=== PATIENT | female | born 1970 | race African-American/Black ===

== ENCOUNTER 2021-04-05 06:03 | Emergency (ER) | payer OTHER, SELFPAY ==
[2021-04-05] MEDS ORDERED: methylPREDNISolone Sod Succ/PF 125 MG/2 ML VIAL ONE (06:30)
[2021-04-05] MEDS ORDERED: diphenhydrAMINE 50 MG/ML VIAL ONE (06:30)
[2021-04-05] MEDS ORDERED: Ondansetron PF 4 MG/2 ML Vial ONE (06:30)
[2021-04-05 07:03] LABS: #Lymphocytes 2.7 thou/uL (1.20-3.40); #Monocytes 0.6 thou/uL (0.11-0.59); %Basophils 0.4 % (0.0-1.0); %Eosinophils 0.3 % (0.0-10.0); %Monocytes 7.6 % (0.0-10.0); %Neutrophils 59.7 % (42.0-75.0); Hemoglobin 12.9 g/dL (12.0-16.0); Mean Corpuscular HGB CONC 33.3 g/dL (32.0-36.0); Mean Corpuscular Hemoglobin 27.9 pg (27.0-31.0); Mean Corpuscular Volume 83.7 fL (78.0-98.0); Platelet Count 327 thou/uL (130-400); RBC Distribution Width 12.7 % (11.5-14.5); Red Blood Cell (RBC) Count 4.64 mill/uL (4.20-5.40); White Blood Cell (WBC) Count 8.5 thou/uL (4.8-10.8)
[2021-04-05 07:16] LABS: Bilirubin Negative (Negative); Blood, Urine Negative (Negative); Clarity Clear (Clear); Glucose, Urine (Dipstick) Normal (Negative); Ketone, Urine Negative (Negative); Leukocyte Negative Leu/uL (Negative); Nitrite Negative (Negative); Protein, Urine (Dipstick) 10 mg/dL (Neg-Trace); Specific Gravity, Urine 1.009 (1.002-1.036); Urobilinogen Normal mg/dL (Less than 2)
[2021-04-05 07:29] LABS: ALT (SGPT) 26 U/L (8-55); AST (SGOT) 13 U/L (5-34); Albumin 4.1 g/dL (3.5-5.0); Alkaline Phosphatase 118 U/L (40-110); Anion Gap 12 mmol/L (10-20); BUN (Urea Nitrogen) 10 mg/dL (7.0-18.7); Bilirubin, Total 0.3 mg/dL (0.2-1.2); Calc. Creatinine Clearance 0 mL/min (70-130); Calcium 9.8 mg/dL (7.8-10.44); Carbon Dioxide 26 mmol/L (22-29); Chloride 104 mmol/L (98-107); Globulin 4.7 g/dL (2.4-3.5); Glucose 133 mg/dL (70-105); Potassium 3.4 mmol/L (3.5-5.1); Protein, Total 8.8 g/dL (6.0-8.3); Sodium 139 mmol/L (136-145)
[2021-04-05] MEDS ORDERED: Iopamidol-370 76% 500 ML 1 ML ONE (11:09)
== END 2021-04-05 09:35 ==
LOC: ERS 06:03 → EEVIPCON 06:03 → ERS 09:35
DX: R07.81 Pleurodynia (principal); R55 Syncope and collapse; I10 Essential (primary) hypertension; Z79.899 Other long term (current) drug therapy
CPT/HCPCS: 71045; 71275; 80053; 81003; 84484; 85025; 85379; 93005; 96374; 96375; J1200; J2405; J2930; Q9967

== ENCOUNTER 2023-03-01 21:46 | Emergency (ER) | payer SELFPAY ==
[~2023-03-01 21:46] MED LIST: Iopamidol-370 76% 500 ML MDV (1 ML CHARGE) ONE
[2023-03-01 22:35] LABS: %Basophils 0.2 % (0.0-1.0); %Eosinophils 0.4 % (0.0-10.0); %Lymphocytes 27.2 % (21.0-51.0); Hematocrit 33.6 % (36.0-47.0); Hemoglobin 11.1 g/dL (12.0-16.0); Mean Corpuscular Hemoglobin 27.2 pg (27.0-31.0); Mean Corpuscular Volume 82.4 fl (78.0-98.0); Mean Platelet Volume 9.3 fL (7.4-10.4); Platelet Count 299 10x3/uL (130-400); RBC Distribution Width 14.2 % (11.5-14.5); Red Blood Cell (RBC) Count 4.08 mill/uL (4.20-5.40); White Blood Cell (WBC) Count 8.3 10x3/uL (4.8-10.8)
[2023-03-01 22:52] LABS: Acetaminophen Less than 10 mcg/mL (10.0-30.0); Alcohol Less than 10.0 mg/dL (Less than 10); Salicylate Less than 8.0 mg/dL (15.0-30.0)
[2023-03-01 22:54] LABS: ALT (SGPT) 24 U/L (8-55); AST (SGOT) 13 U/L (5-34); Albumin 4.3 g/dL (3.5-5.0); Alkaline Phosphatase 108 U/L (40-110); Anion Gap 15 mmol/L (10-20); BUN (Urea Nitrogen) 14 mg/dL (9.8-20.1); Bilirubin, Total Less than 0.2 mg/dL (0.2-1.2); CK (CPK) 94 U/L (29-168); Calc. Creatinine Clearance 0 mL/min (70-130); Calcium 9.8 mg/dL (7.8-10.44); Carbon Dioxide 22 mmol/L (22-29); Chloride 105 mmol/L (98-107); Estimated GFR 75; Globulin 3.8 g/dL (2.4-3.5); Glucose 108 mg/dL (70-105); Lipase 119 U/L (8-78); Potassium 3.4 mmol/L (3.5-5.1); Protein, Total 8.1 g/dL (6.0-8.3); Sodium 139 mmol/L (136-145)
[2023-03-01 22:56] LABS: Troponin I Less than 0.010 ng/mL (< 0.028)
[2023-03-01 23:24] LABS: Bilirubin Negative (Negative); Blood, Urine Negative (Negative); CAUTI Indications for Culture Pelvic or flank pain; Clarity Clear (Clear); Glucose, Urine (Dipstick) Greater than 1000 mg/dL (Negative); Ketone, Urine Negative (Negative); Leukocyte Negative Leu/uL (Negative); Nitrite 2+ (Negative); Protein, Urine (Dipstick) Negative (Neg-Trace); RBC/HPF 0-3 HPF (0-3); Specific Gravity, Urine 1.011 (1.002-1.036); Urobilinogen Normal mg/dL (Less than 2)
[2023-03-01 23:25] LABS: Bacteria/HPF 1+ HPF (None Seen); Urine Culture Reflex No No
[2023-03-01 23:50] LABS: SARS-CoV-2 NAA Rapid Test Not Detected (NotDetected)
[2023-03-01 23:56] LABS: Amphetamine Not Detected (NotDetected); Barbiturates Screen Not Detected (NotDetected); Benzodiazepine Screen Not Detected (NotDetected); Cocaine Metabolite Screen Detected (NotDetected); Methadone Not Detected (NotDetected); Methamphetamine Not Detected (NotDetected); Opiate Screen Not Detected (NotDetected); Oxycodone Screen Not Detected (NotDetected); Phencyclidine (PCP) Not Detected (NotDetected); THC/Cannabinoid Screen Detected (NotDetected); Tricyclic Screen Detected (NotDetected)
[2023-03-02] MEDS ORDERED: Ketorolac Tromethamine 30 MG/ML VIAL ONE (00:09)
[2023-03-02 02:24] LABS: Troponin I Less than 0.010 ng/mL (< 0.028)
== END 2023-03-02 02:37 | disposition home or self-care (01) ==
LOC: ERS 21:46
DX: R00.2 Palpitations (principal); R07.9 Chest pain, unspecified; N39.0 Urinary tract infection, site not specified; R91.1 Solitary pulmonary nodule; T40.5X1A Poisoning by cocaine, accidental (unintentional), initial encounter; I10 Essential (primary) hypertension; E11.9 Type 2 diabetes mellitus without complications; E78.00 Pure hypercholesterolemia, unspecified; F17.210 Nicotine dependence, cigarettes, uncomplicated; Z79.899 Other long term (current) drug therapy; Z20.822 Contact with and (suspected) exposure to COVID-19
CPT/HCPCS: 36415; 71045; 71275; 80053; 80306; 80307; 81001; 82010; 82550; 83605; 83690; 83880; 84443; 84484; 85025; 85379; 87040; 93005; 96374; J1885; Q9967

== ENCOUNTER 2023-04-06 16:46 | Emergency (ER) | payer SELFPAY ==
[2023-04-06] MEDS ORDERED: Ketorolac Tromethamine 30 MG/ML VIAL ONE (17:53)
[2023-04-06 18:14] LABS: Bilirubin Negative (Negative); Blood, Urine Negative (Negative); CAUTI Indications for Culture Fever or rigors; Clarity Clear (Clear); Glucose, Urine (Dipstick) Greater than 1000 mg/dL (Negative); Ketone, Urine Negative (Negative); Leukocyte 25 Leu/uL (Negative); Nitrite Negative (Negative); Protein, Urine (Dipstick) Negative (Neg-Trace); RBC/HPF 0-3 HPF (0-3); Specific Gravity, Urine 1.014 (1.002-1.036); Urobilinogen Normal mg/dL (Less than 2)
[2023-04-06 18:18] LABS: Bacteria/HPF 1+ HPF (None Seen); Yeast-Budding 1+ HPF (None Seen)
[2023-04-06 18:19] LABS: Urine Culture Reflex Yes Yes
[2023-04-06 18:27] LABS: SARS-CoV-2 NAA Rapid Test Not Detected (NotDetected)
== END 2023-04-06 19:04 | disposition home or self-care (01) ==
LOC: ERS 16:46
DX: R05.9 Cough, unspecified (principal); N39.0 Urinary tract infection, site not specified; I10 Essential (primary) hypertension; E11.9 Type 2 diabetes mellitus without complications; J45.909 Unspecified asthma, uncomplicated; F17.210 Nicotine dependence, cigarettes, uncomplicated; Z20.822 Contact with and (suspected) exposure to COVID-19
CPT/HCPCS: 81001; 87081; 87086; 87430; 96372; 99283; J1885

== ENCOUNTER 2023-11-17 12:13 | Outpatient (CLI) | payer OTHER | END 2023-11-17 12:14 | disposition home or self-care (01) | LOC: BICMAMMO 12:13 | PROVIDERS: ATTEND Pathology Anatomic Pathology & Clinical Pathology | DX: Z12.31 Encounter for screening mammogram for malignant neoplasm of breast (principal); Z80.3 Family history of malignant neoplasm of breast | CPT/HCPCS: 77063; 77067 ==